=== PATIENT | male | born 1955 | race Caucasian/White ===

== ENCOUNTER 2016-11-14 12:48 | Emergency (ER) | payer BC ==
[~2016-11-14] VITALS: Ht 175.3 cm; Wt 83.0 kg
[2016-11-14] MEDS ORDERED: ULTRACET1 TABLET PO (15:23)
[2016-11-14] MEDS ORDERED: KEFLEX500 MG PO (15:23)
[2016-11-14] MEDS ORDERED: MOTRIN600 MG PO (15:23)
[2016-11-14 15:47] VITALS: BP 164/89
== END 2016-11-14 16:01 | disposition home or self-care (01) ==
LOC: EME 12:48
DX: S62.660B Nondisplaced fracture of distal phalanx of right index finger, initial encounter for open fracture (principal); S61.210A Laceration without foreign body of right index finger without damage to nail, initial encounter; W26.8XXA Contact with other sharp object(s), not elsewhere classified, initial encounter; Y92.009 Unspecified place in unspecified non-institutional (private) residence as the place of occurrence of the external cause; Y93.89 Activity, other specified; Z23 Encounter for immunization
CPT/HCPCS: 73140; 99281; 99284; S0020

== ENCOUNTER → 2017-07-02 | Outpatient (CLI) | payer BC ==
[~2017-07-02] MED LIST: KEFLEX500 MG PO; MOTRIN600 MG PO; ULTRACET1 TABLET PO
== END | disposition home or self-care (01) ==
LOC: CDC 11:41
DX: Z01.810 Encounter for preprocedural cardiovascular examination (principal); M18.12 Unilateral primary osteoarthritis of first carpometacarpal joint, left hand; R00.1 Bradycardia, unspecified
CPT/HCPCS: 93000